=== PATIENT | female | born 2005 | race Caucasian/White ===

== ENCOUNTER 2025-04-07 17:57 | Emergency (ER) | payer BC, MEDICAID ==
[~2025-04-07] VITALS: Ht 170.2 cm; Wt 47.6 kg
[2025-04-07] MEDS: IV NORMAL SALINE 1000 ML BAG IV ONE (18:27)
[2025-04-07 18:33] LABS: PLATELET COUNT (AUTO) 222 K/uL (179-408); RED BLOOD CELL COUNT(AUTO) 4.31 MIL/uL (3.63-4.92); RED CELL DISTRIBUTION WIDTH 12.2 % (12.3-17.7); WHITE BLOOD COUNT (AUTO) 7.3 K/uL (3.8-11.8)
[2025-04-07 18:34] VITALS: BP 117/68
[2025-04-07 18:41] LABS: CREATININE 0.6 mg/dL (0.6-1.3); SODIUM SERUM 145 mmol/L (136-145); UREA NITROGEN, BLOOD 14 mg/dL (7-18)
[2025-04-07 18:47] LABS: ASPARTATE AMINOTRANSFERASE 16 U/L (15-37); TOTAL PROTEIN, SERUM 6.9 g/dL (6.4-8.2)
[2025-04-07 19:20] LABS: *BILIRUBIN,URIN NEGATIVE (NEGATIVE); *BLOOD, URINE 2+ (NEGATIVE); *CLARITY,URINE SLIGHTLY CLOUDY (CLEAR); *COLOR,URINE Other (YELLOW); *KETONES,URINE 3+ (NEGATIVE); *PROTEIN,URINE 2+ (NEGATIVE); *UROBILINOGEN,URINE 0.2 E.U./dl (NORMAL); LEUKOCYTE ESTERASE ,URINE NEGATIVE (NEGATIVE); NITRITE, URINE NEGATIVE (NEGATIVE); UGLUCOSE NEGATIVE (NEGATIVE)
[2025-04-07 19:26] LABS: *URINE HCG, QUAL NEGATIVE (NEGATIVE)
[2025-04-07 20:58] VITALS: BP 115/65; O2SAT 99
== END 2025-04-07 20:35 | disposition home or self-care (01) ==
LOC: ER 17:57
DX: R55 Syncope and collapse (principal); R11.2 Nausea with vomiting, unspecified
CPT/HCPCS: 99285; 96360; 71045; 80076; 80048; 81001; 82962; 84703; 83735; 84100; 84443; 85025; 85730; 86850; 86900; 86901; 84484; 36415; 93005; J7040; A4606; A4663